=== PATIENT | female | born 1995 | race African-American/Black ===

== ENCOUNTER 2017-08-19 17:57 | Emergency (ER) | payer OTHER ==
[2017-08-19] MEDS: ONDANSETRON ODT 4 MG TAB.RAPDIS. PO (18:45)
[2017-08-20 07:06] LABS: URINE HCG POC HCG POSITIVE (Negative)
== END 2017-08-19 18:54 | disposition home or self-care (01) ==
LOC: ER 18:54
DX: K59.00 Constipation, unspecified (principal); N93.9 Abnormal uterine and vaginal bleeding, unspecified; R10.9 Unspecified abdominal pain
CPT/HCPCS: 81025; 99284; Q0162

== ENCOUNTER 2019-03-14 09:44 | Emergency (ER) | payer SELFPAY ==
[~2019-03-14] VITALS: Ht 165.1 cm; Wt 54.7 kg
[~2019-03-14 09:44] MED LIST: ONDA4TAB10 PO; POLY17PO29 PO
[2019-03-14 09:50] VITALS: BP 112/62
--- NOTE | 2019-03-14 10:28 | RAD ---
CHEST PA LATERAL INDICATION: . COMPARISON STUDY: None. FINDINGS: Lungs: Normal lung volume. No pulmonary mass or consolidation. The tracheobronchial tree and hilar structures are normal. Pleura: No pleural effusion or pneumothorax. Heart and Mediastinum: The cardiomediastinal silhouette is normal. The great vessels of the thorax are normal. Bones and Soft Tissues: The bones and soft tissues are within normal limits. IMPRESSION: No acute cardiopulmonary process. Electronically signed by: Aniket Hart MD (03/14/2019 10:26 AM) [id number]
[2019-03-14] MEDS ORDERED: ALBUTEROL SULFATE 2.5 MG/3 ML NEBU. NEB ONE (10:45)
[2019-03-14] MEDS ORDERED: BENZ100C PO (10:49)
[2019-03-14] MEDS ORDERED: VENTOLIN HFA18 GM INH (10:49)
--- NOTE | 2019-03-14 10:49 | PHYS DOC ---
Past Medical History Past Medical History: No Pertinent History Past Surgical History: Other Additional Past Surgical Histo: recent D&C Alcohol Use: Occasionally Drug Use: None Adult General Chief Complaint Chief Complaint: COUGH HPI HPI Patient is a 23 year old AA female who presents to the emergency department with complaints of a productive cough with green sputum, nasal congestion, head congestion, and headaches for the last 6 days. She denies any fever, abdominal pain, nausea, vomiting, diarrhea, wheezing, shortness of breath, rash, sore throat, or ear pain. She also denies any body aches, low back pain, dysuria, hematuria, or increased urinary frequency. Patient states she has been taking DayQuil, NyQuil, Mucinex, and using cough drops with little improvement in her symptoms. Currently, she rates her pain a 7 out of 10 on the pain scale, she denies any alleviating factors, pain is worse with coughing. Review of Systems Review of Systems Constitutional: Denies fever or chills [] Eyes: Denies discharge, or eye pain; reports recent eye redness relieved by OTC eye drops HENT: Denies ear pain or sore throat; see HPI Respiratory: Denies wheezing or shortness of breath; see hpi Cardiovascular: No additional information not addressed in HPI [] GI: Denies abdominal pain, nausea, vomiting, or diarrhea [] : Denies dysuria or hematuria [] Musculoskeletal: Denies back pain or joint pain [] Integument: Denies rash or skin lesions [] Neurologic: Denies focal weakness or sensory changes [] Complete systems were reviewed and found to be within normal limits, except as documented in this note. Current Medications Current Medications Current Medications Medications (Trade) Dose Ordered Sig/Radha Start Time Stop Time Status Last Admin Dose Admin Albuterol Sulfate (Ventolin Neb Soln) 2.5 mg 1X ONCE 03/14/19 10:45 03/14/19 10:46 Allergies Allergies Allergies Coded Allergies Type Severity Reaction Last Updated Verified No Known Drug Allergies 08/19/17 No Physical Exam Physical Exam Constitutional: Well developed, well nourished, no acute distress, non-toxic appearance. [] HENT: Normocephalic, atraumatic, bilateral external ears normal, lateral TMs normal, posterior pharynx normal oropharynx moist, no oral exudates, nose congested Eyes: PERRLA, EOMI, conjunctiva normal, no discharge. [] Neck: Normal range of motion, no tenderness, supple, no stridor. [] Cardiovascular:Heart rate regular rhythm, no murmur [] Lungs & Thorax: Bilateral breath sounds clear to auscultation, diminished in laterally, no wheezing, no retractions, speaking full sentences [] Skin: Warm, dry, no erythema, no rash. [] Back: No tenderness Extremities: No cyanosis, no clubbing, ROM intact, no edema. [] Neurologic: Alert and oriented X 3, no focal deficits noted. [] Psychologic: Affect normal, judgement normal, mood normal. [] Current Patient Data Vital Signs Vital Signs Date Time Temp Pulse Resp B/P (MAP) Pulse Ox O2 Delivery O2 Flow Rate FiO2 03/14/19 10:24 100 Room Air 03/14/19 09:50 98.5 72 18 112/62 (79) 98.5 EKG EKG [] Radiology/Procedures Radiology/Procedures PROCEDURE: CHEST PA & LATERAL CHEST PA LATERAL INDICATION: . COMPARISON STUDY: None. FINDINGS: Lungs: Normal lung volume. No pulmonary mass or consolidation. The tracheobronchial tree and hilar structures are normal. Pleura: No pleural effusion or pneumothorax. Heart and Mediastinum: The cardiomediastinal silhouette is normal. The great vessels of the thorax are normal. Bones and Soft Tissues: The bones and soft tissues are within normal limits. IMPRESSION: No acute cardiopulmonary process.[] Course & Med Decision Making Course & Med Decision Making Pertinent Labs and Imaging studies reviewed. (See chart for details) dx: uri Patient was given a breathing treatment in the emergency department, her lung sounds were clear in all hale following breathing treatment. Chest x-ray was negative for pneumonia. Patient's vital signs are stable. Prescription written for an albuterol inhaler and Tessalon Perles. Encouraged patient to follow up with primary care provider next week if symptoms persist, return to the ER symptoms worsen The patient verbalized an understanding of home care, medications, follow-up, and return to ED instructions and was in agreement with the plan of care. [] Dragon Disclaimer Dragon Disclaimer This electronic medical record was generated, in whole or in part, using a voice recognition dictation system. Departure Departure Impression: Primary Impression: URI with cough and congestion Disposition: HOME, SELF-CARE Condition: STABLE Referrals: NO PCP (PCP) Patient Instructions: Upper Respiratory Infection, Adult, [id number] Additional Instructions: Fill prescription(s) and use as directed. Recommend use of a Cool mist humidifier in room at bedtime. Alternate Tylenol or ibuprofen as needed for pain/fever. Increase clear fluids. Avoid airway triggers such as smoke, fragrance, dust, and pollen. Follow-up with your primary care doctor next week, return to the ER if symptoms worsen. Scripts Benzonatate (TESSALON PERLE) 100 Mg Capsule 1 CAP PO TID PRN for COUGH for 7 Days, #21 CAP 0 Refills Prov: AWAIS ROQUE COMPUTER HELP DESK REPRESENTATIVE 03/14/19 Albuterol Sulfate (VENTOLIN HFA INHALER) 18 Gm Hfa.aer.ad 2 PUFF INH Q4HRS PRN for WHEEZING for 30 Days, #1 INHALER 0 Refills Prov: AWAIS ROQUE COMPUTER HELP DESK REPRESENTATIVE 03/14/19 AWAIS ROQUE COMPUTER HELP DESK REPRESENTATIVE Mar 14, 2019 10:49
== END 2019-03-14 11:04 | disposition home or self-care (01) ==
LOC: ER 09:44
DX: J06.9 Acute upper respiratory infection, unspecified (principal); R05 Cough; R09.81 Nasal congestion
CPT/HCPCS: 71046; 94640; 99284

== ENCOUNTER 2019-06-01 11:01 | Emergency (ER) | payer SELFPAY ==
[~2019-06-01] VITALS: Ht 165.1 cm; Wt 52.3 kg
[~2019-06-01 11:01] MED LIST changes: +BENZ100C PO; +VENTOLIN HFA18 GM INH
--- NOTE | 2019-06-01 11:27 | PHYS DOC ---
Past Medical History Past Medical History: No Pertinent History (AWAIS ROQUE APRN) Past Surgical History: Other Additional Past Surgical Histo: recent D&C (AWAIS ROQUE APRN) Alcohol Use: Occasionally Drug Use: None (AWAIS ROQUE APRN) Adult General Chief Complaint Chief Complaint: FEVER HPI HPI Patient is a 23 year old AA female who presents to the emergency department with complaints of sore throat, headache, tactile fever, and productive cough with yellow sputum for the last week. She denies any nausea, vomiting, diarrhea, abdominal pain, ear pain, shortness of breath, or wheezing. Patient denies any known exposure to influenza. She currently complains of sinus pressure that she rates a 7 out of 10 on the pain scale, she denies any alleviating factors. She denies any vision changes, numbness, tingling, or weakness. All other ROS is neg unless otherwise noted in HPI. (AWAIS ROQUE APRN) Review of Systems Review of Systems See Above (AWAIS ROQUE APRN) Allergies Allergies Allergies Coded Allergies Type Severity Reaction Last Updated Verified No Known Drug Allergies 08/19/17 No (BRYON CARDOSO DO) Physical Exam Physical Exam See Above Constitutional: Well developed, well nourished, no acute distress, non-toxic appearance. [] HENT: Normocephalic, atraumatic, bilateral external ears normal, oropharynx moist, no oral exudates, nose normal. [] Eyes: PERRLA, EOMI, conjunctiva normal, no discharge. [] Neck: Normal range of motion, no stridor. [] Cardiovascular:Heart rate regular rhythm, no murmur [] Lungs & Thorax: Bilateral breath sounds clear to auscultation, Respirations even and unlabored, no retractions, no respiratory distress [] Skin: Warm, dry, no erythema, no rash. [] Extremities: No cyanosis, no clubbing, ROM intact, no edema. [] Neurologic: Alert and oriented X 3, no focal deficits noted. [] Psychologic: Affect normal, judgement normal, mood normal. [] (AWAIS ROQUE APRN) Current Patient Data Vital Signs Vital Signs Date Time Temp Pulse Resp B/P (MAP) Pulse Ox O2 Delivery O2 Flow Rate FiO2 06/01/19 11:36 98.2 83 18 128/64 (85) 99 Room Air 98.2 (BRYON CARDOSO DO) EKG EKG [] (AWAIS ROQUE APRN) Radiology/Procedures Radiology/Procedures [] (AWAIS ROQUE APRN) Course & Med Decision Making Course & Med Decision Making Pertinent Labs and Imaging studies reviewed. (See chart for details) dx: medical screening exam A medical screening exam was performed, patient was found to have no emergent medical condition. The plan of care would've included flu instructions and prescription for Tessalon Perles . However, the patient eloped after talking with registration. [] [] (AWAIS ROQUE APRN) Dragon Disclaimer Dragon Disclaimer This electronic medical record was generated, in whole or in part, using a voice recognition dictation system. (AWAIS ROQUE APRN) Departure Departure Impression: Primary Impression: Encounter for medical screening examination Disposition: HOME, SELF-CARE (pt eloped after speaking with registration) Condition: STABLE Referrals: NO PCP (PCP) Attending Signature Attending Signature I have reviewed the PA/CONSUMER RELATIONS COMPLAINT CLERK's note and plan of care. I was available for consultation as needed during the patient's visit in the emergency department. I agree with the clinical impression, plan, and disposition. (BRYON CARDOSO DO) AWAIS ROQUE APRN Jun 01, 2019 11:27 BRYON CARDOSO DO Jun 04, 2019 14:42
[2019-06-01 11:36] VITALS: BP 128/64
== END 2019-06-01 11:48 | disposition home or self-care (01) ==
LOC: ER 11:01
DX: J02.9 Acute pharyngitis, unspecified (principal); R50.9 Fever, unspecified; R51 Headache; R05 Cough; Z98.890 Other specified postprocedural states
CPT/HCPCS: 99281